=== PATIENT | female | born 1985 | race Caucasian/White ===

== ENCOUNTER 2020-05-31 13:55 | Emergency (ER) | payer OTHER, SELFPAY ==
[2020-05-31 14:10] VITALS: BP 149/82; PULSE 78; RESP 19; TEMP 37.1; O2SAT 98; BMI 28.3
--- NOTE | 2020-05-31 14:31 | HMH.EDUTC ---
[facility] [place] Disposition Clinical Impression: Acute labyrinthitis Qualifiers: Laterality: right Qualified Code(s): H83.01 - Labyrinthitis, right ear Disposition: Home, Self-Care Condition on Discharge: Good Instructions: Middle Ear Infection, DI for Labyrinthitis, Meclizine, Amoxicillin Additional Instructions: *Monitor Temp, Over the counter Motrin or Tylenol as directed/as needed Tylenol every 4 hours and Motrin every 6 hours (as long as your family doctor has told you that you can take it) for fever or pain. and straight to ER if unable to lower temp less than 101.0 after medication given Take medication as prescribed *Sleep elevated *Humidifier/Vaporizer *Flonase 2 sprays in each nostril daily but be aware that it may take 2-3 days before you notice improvement Follow up with Family Doctor immediately if no improvement or any worsening of symptoms Follow up IMMEDIATELY for new or worsening symptoms or no Noticeable improvement over the next 48-72 hours. 911 for difficulty breathing or swallowing Prescriptions: Amoxicillin [Amoxicillin 875MG Tab] 875 mg PO Q12H #20 tab Transmission Status: Received by [facility] Meclizine HCl [Meclizine 25mg Tab] 25 mg PO BID PRN #10 tab PRN Reason: Dizziness Transmission Status: Received by [facility] Referrals: PCP,No [Primary Care Provider] - As needed Time of Disposition: 14:36 Medical Decision Making - Mazin Inquiry Pt receiving controlled substance: No Mazin was queried for this patient: No Vital Signs: 05/31/20 14:10 05/31/20 14:40 Temperature 98.7 F 98.7 F Temperature Source Oral Pulse Rate 78 Pulse Rate [Right Brachial] 78 Respiratory Rate 19 19 Blood Pressure 149/82 H Blood Pressure [Right Arm] 149/82 H Blood Pressure Mean [Right Arm] 104 Blood Pressure Source [Right Arm] Automatic Cuff Blood Pressure Position [Right Arm] Sitting 02 Sat by Pulse Oximetry 98 Oxygen Delivery Method Room Air [facility] [place] HPI - General Stated complaint: DIZZY Time Seen by Provider: 05/31/20 14:31 Mode of Arrival: Ambulatory Source of Information: Patient Limitations: No Limitations Description of Symptoms (Recalled from Triage Doc. by RN): PATIENT C/O DIZZINESS SINCE THIS MORNING HEENT Symptoms (Recalled from RN notes): Yes Resp Symptoms (Recalled from RN notes): No Skin Symptoms (Recalled from RN notes): No MS Symptoms (Recalled from RN notes): No Functional Status (Recalled from RN notes): WNL - History of Present Illness Provider Complaint: Patient state that she has been having pain and pressure like feeling in her ears on and off for about a week State that this morning she woke up and felt like she was walking sideways State that she feels like she is leaning to the side when she walks States that she is not having any vision problems just feels unbalanced - Related Data Previous Rx's Medication Instructions Recorded Amoxicillin [Amoxicillin 875MG 875 mg PO Q12H #20 tab 05/31/20 Tab] Meclizine HCl [Meclizine 25mg Tab] 25 mg PO BID PRN #10 tab 05/31/20 Allergies Allergy/AdvReac Type Severity Reaction Status Date / Time No Known Allergies Allergy Verified 05/31/20 14:25 - Worker's Comp Is this a Worker's Comp case?: No [facility] History - Hepatitis A Screen Drug use history?: No High risk sexual behaviors?: No History of sexually transmitted infection?: No Currently employed?: No Childcare worker?: No Do you have indoor plumbing?: Yes Do you have electricity?: Yes Attestation statement:: This patient has been screened for Hepatitis A risk factors. I have reviewed the patient's past medical history: Yes - Social History Alcohol Intake: never Occupational Status: other ROS Obtained: Yes All systems reviewed & no additional complaints, Yes Systems reviewed as appropriate & no additional complaints - Constitutional Constitutional: Reports system reviewed and no additional complaints, except as docu - ENT Ears, Nose
[2020-05-31 14:40] VITALS: BP 149/82; PULSE 78; RESP 19; TEMP 37.1; O2SAT 98
== END 2020-05-31 14:44 | disposition home or self-care (01) ==
PROVIDERS: Emergency Provider Nurse Practitioner
DX: H83.01 Labyrinthitis, right ear (principal)
CPT/HCPCS: 99202; G0463

== ENCOUNTER 2020-08-17 13:06 | Emergency (ER) | payer OTHER, SELFPAY ==
[2020-08-17 13:07] VITALS: BP 129/81; PULSE 79; RESP 14; TEMP 36.7; O2SAT 94; BMI 29.2
--- NOTE | 2020-08-17 14:04 | XR_ITS ---
PROCEDURE: XR KNEE RT 3V CLINICAL INDICATION: INJURY Pain COMPARISON: No exams were available for comparison FINDINGS: No fracture or dislocation. No lytic or blastic change. There is normal mineralization. The joint spaces are well-preserved. No significant degenerative/arthritic changes. No erosive changes evident. Other findings:None. IMPRESSION: No acute findings. Dictated by: Austyn Roper MD 08/17/2020 15:32 Austyn Roper MD in [place] 08/17/2020 15:32
--- NOTE | 2020-08-17 14:05 | XR_ITS ---
PROCEDURE: XR ANKLE LT MIN 3V CLINICAL INDICATION: FALL Pain COMPARISON: CR XR KNEE RT 3V from 08/17/2020 FINDINGS: No fracture or dislocation. No lytic or blastic change. There is normal mineralization. The joint spaces are well-preserved. No significant degenerative/arthritic changes. No erosive changes evident. Other findings:None. IMPRESSION: No acute findings. Dictated by: Austyn Roper MD 08/17/2020 15:33 Austyn Roper MD in [place] 08/17/2020 15:33
[2020-08-17 14:09] VITALS: PULSE 70; RESP 16; TEMP 36.4; O2SAT 100; BMI 29.2
--- NOTE | 2020-08-17 14:31 | HMH.EDUTC ---
[facility] [place] Clinical Impression: Fall Qualifiers: Encounter type: initial encounter Qualified Code(s): W19.XXXA - Unspecified fall, initial encounter Contusion of right knee Qualifiers: Encounter type: initial encounter Qualified Code(s): S80.01XA - Contusion of right knee, initial encounter Right knee pain Qualifiers: Chronicity: acute Qualified Code(s): M25.561 - Pain in right knee Left ankle sprain Qualifiers: Encounter type: initial encounter Involved ligament of ankle: unspecified ligament Qualified Code(s): S93.402A - Sprain of unspecified ligament of left ankle, initial encounter Disposition: Home, Self-Care Condition on Discharge: Good Instructions: How to Use Crutches, DI for Knee Sprain, DI for Ankle Sprain, DI for Knee Pain, How to Use a Knee Immobilizer Additional Instructions: Rest the extremity, apply ice for 15 minutes as tolerated three or four times per day, Elevate the extremity as tolerated while you are resting. Take ibuprofen for pain. I sent in a prescription to your pharmacy. Follow up with Dr. Samano (orthopedics). Sometimes there can be fractures that don't show up well on the first set of x-rays. So, you should follow up if you continue to have symptoms. I put in a referral but you need to call his office and schedule an appointment. Follow up with your regular doctor. GO TO THE ER FOR ANY WORSENING SYMPTOMS Prescriptions: Ibuprofen [Ibuprofen 800mg Tablet] 800 mg PO Q8HP PRN #30 tab PRN Reason: Moderate Pain Transmission Status: Received by [facility] Referrals: PCP,No [Primary Care Provider] - Marvin Samano MD [Staff Physician] - Forms: Work/School Release Time of Disposition: 15:15 Medical Decision Making - Medical Records Medical records reviewed: No: I reviewed the patient's medical records. - Mazin Inquiry Pt receiving controlled substance: No Vital Signs: 08/17/20 13:07 08/17/20 14:09 08/17/20 15:13 Temperature 98.1 F 97.6 F 97.5 F L Temperature Source Oral Oral Oral Pulse Rate 72 Pulse Rate [Right] 79 70 Respiratory Rate 14 16 16 Blood Pressure 131/76 Blood Pressure [Right Arm] 129/81 Blood Pressure Mean [Right Arm] 97 02 Sat by Pulse Oximetry 94 L 100 Oxygen Delivery Method Room Air Room Air Room Air - Radiology Data #1 Image(s): Knee Image Reviewed: Yes I reviewed the patient's radiology image Preliminary Findings: No Fracture Seen PROCEDURE: XR KNEE RT 3V CLINICAL INDICATION: INJURY Pain COMPARISON: No exams were available for comparison FINDINGS: No fracture or dislocation. No lytic or blastic change. There is normal mineralization. The joint spaces are well-preserved. No significant degenerative/arthritic changes. No erosive changes evident. Other findings:None. IMPRESSION: No acute findings. Dictated by: Austyn Roper MD 08/17/2020 15:32 Austyn Roper MD in [place] 08/17/2020 15:32 [facility] [place] HPI - General Stated complaint: [id number] right knee pain Time Seen by Provider: 08/17/20 14:31 Mode of Arrival: Ambulatory Source of Information: Patient Limitations: No Limitations Description of Symptoms (Recalled from Triage Doc. by RN): Fell and hurt right knee and left ankle HEENT Symptoms (Recalled from RN notes): No Resp Symptoms (Recalled from RN notes): No Skin Symptoms (Recalled from RN notes): No MS Symptoms (Recalled from RN notes): Yes Functional Status (Recalled from RN notes): na - History of Present Illness Provider Complaint: She states that she fell at her work this morning. When she fell she came down on her right knee. Since then she has had right knee pain. The pain is worse when she tries to walk or bear weight on the leg. She also c/o left ankle pain and abrasion. She states that when she fell she hit her ankle on a shelf. She recieved an abrasion on the lateral side of that ankle. - Related Data Previous Rx's Medication Instructions Recorded Amoxic
[2020-08-17 15:13] VITALS: BP 131/76; PULSE 72; RESP 16; TEMP 36.4; O2SAT 100
== END 2020-08-17 15:15 | disposition home or self-care (01) ==
PROVIDERS: Emergency Provider Nurse Practitioner Family
DX: S93.402A Sprain of unspecified ligament of left ankle, initial encounter (principal); S80.01XA Contusion of right knee, initial encounter; W01.198A Fall on same level from slipping, tripping and stumbling with subsequent striking against other object, initial encounter; Y92.69 Other specified industrial and construction area as the place of occurrence of the external cause; Y99.0 Civilian activity done for income or pay
CPT/HCPCS: 29505; 73562; 73610; 99202; G0463

== ENCOUNTER → 2020-08-21 12:46 | Outpatient (CLI) | payer OTHER, SELFPAY ==
--- NOTE | 2020-08-21 12:57 | XR_ITS ---
PROCEDURE: XR KNEE RT 4V CLINICAL INDICATION: RT knee pain COMPARISON: CR XR KNEE RT 3V from 08/17/2020 FINDINGS: No fracture or dislocation. No lytic or blastic change. There is normal mineralization. There are mild osteoarthritic changes of the medial compartment with decrease in the joint space. Other findings:None. IMPRESSION: Minimal osteoarthritic changes medial compartment otherwise negative Dictated by: Austyn Roper MD 08/21/2020 14:31 Austyn Roper MD in [place] 08/21/2020 14:31
== END ==
PROVIDERS: Visit Provider Orthopaedic Surgery
DX: M25.561 Pain in right knee (principal)
CPT/HCPCS: 73564